=== PATIENT | female | born 1960 | race Caucasian/White ===

== ENCOUNTER 2017-08-15 09:33 | Inpatient (IN) | payer MEDICAID ==
[~2017-08-15] VITALS: Ht 160 cm; Wt 53.2 kg
--- OUTSIDE RECORDS SUMMARY | ~2017-08-15 | XMS | Clinical Summary ---
Demographics + + + | Address | [address] | | | [place] [address] | + + + | Home Phone | | + + + | Preferred Language | Unknown | + + + | Marital Status | Single | + + + | Orthodox Affiliation | Unknown | + + + | Race | White | + + + | Ethnic Group | Other Race | + + + Author + + + | Author | [facility] | + + + | Organization | [facility] | + + + | Address | Unknown | + + + | Phone | Unavailable | + + + Care Team Providers + +------+ + | Care Complex Care Nurse Name | Role | Phone | + +------+ + | Buzz Fisher MD | PP | | + +------+ + Source Comments ARTURO is fully live on both [facility] and [facility] InPatient.[facility] Allergies Not on File Current Medications Not on file Active Problems Not on file Social History + +-------+ +--------+------+ | Tobacco Use | Types | Packs/Day | Years | Date | | | | | Used | | + +-------+ +--------+------+ | Never Assessed | | | | | + +-------+ +--------+------+ + + + | Sex Assigned at | Date Recorded | | | | + + + | Not on file | | + + + Plan of Treatment + + + + + | Health Maintenance | Due Date | Last Done | Comments | + + + + + | INFLUENZA VACCINE | | | | | (FLU SHOT) | 8 | | | + + + + + Results Not on filefrom Last 3 Months"
--- OUTSIDE RECORDS SUMMARY | ~2017-08-15 | XMS | Clinical Summary ---
Demographics + + + | Address | [address] | | | [place] [address] | + + + | Home Phone | | + + + | Preferred Language | Unknown | + + + | Marital Status | Single | + + + | Mormon Affiliation | Unknown | + + + [...] Team Providers + +------+ + | Care Product Manager Name | Role | Phone | + +------+ + | Buzz Fisher MD | PP | | + +------+ + Source Comments ART[facility]O is fully live on both [facility] Amb[facility] and [facility] InPatient.[facility] Allergies Not on File Current Medications Not [...]
--- OUTSIDE RECORDS SUMMARY | ~2017-08-15 | XMS | Clinical Summary ---
Demographics + + + | Address | [address] | | | [place] [address] | + + + | Home Phone | | + + + | Preferred Language | Unknown | + + + | Marital Status | Single | + + + | Hoahaoism Affiliation | Unknown | + + + [...] Team Providers + +------+ + | Care Staff Training And Development Manager Name | Role | Phone | + +------+ + | Buzz Fisher MD | PP | | + +------+ + Source Comments ART[facility]O is fully live on both [facility] Amb[facility] and [facility] InPatient.[facility] Allergies Not on File Current Medications [...]
--- NOTE | 2017-08-15 14:25 | NUR ---
PT RECEIVED FROM ED. ADMISSION INTAKE COMPLETE. PT COMPLAINT FO PAIN TO LEFT ABD, RATING PAIN 6/10 AT REST, REQUESTED PAIN MEDICATION, GIVEN 0.5 MG IV DILAUDID. PT ON ROOM AIR, LUNG SOUNDS CLEAR. BOWEL TONES ACTIVE, NPO. IV INFUSING LR AT 125 ML/HR, FLAGYL INFUSING. PT SKING GROSSLY INTACT. PULSES PALPABLE, CMS INTACT, WITHOUT EDEMA. DISCUSSED PLAN OF CARE. PT DENIES OTHER NEEDS AT THIS TIME.
--- NOTE | 2017-08-15 15:29 | NUR ---
patient in bed, appears to be sleeping. call light in reach
--- NOTE | 2017-08-15 17:57 | NUR ---
PATIENT IN BED, VITALS AND I/OS DONE. MAXINE LO IN FOR MEDS PATIENT REQUESTS PAIN MEDS, NIRSE NOTIFIED. CALL LIGHT IN REACH
--- NOTE | 2017-08-15 18:12 | NUR ---
PT RECEIVED FROM ED THIS AFTERNOON. PT ON ROOM AIR, LUNG SOUNDS CLEAR. RATING PAIN 6/10, GIVEN IV DILAUDID X2. IV FLUIDS INFUSING D5LR AT 100 ML/HR, IV ABX. PT UP WITH SBA. CLEAR LIQUID DIET. VOIDING CONCENTRATED URINE.
--- NOTE | 2017-08-15 19:15 | NUR ---
RECEIVED REPORT FROM RN. PATIENT IS RESTING IN BED, BREATHING IS EVEN AND UNLABORED. DENIES NEEDS AT THIS TIME. CALL LIGHT WITHIN REACH.
--- NOTE | 2017-08-15 20:02 | NUR ---
PATIENT RESTING IN BED, BREATHING IS EVEN AND UNLABORED. DENIES NEEDS. ASSESSMENT DONE, MEDICATION GIVEN. CALL LIGHT WITHIN REACH.
--- NOTE | 2017-08-15 20:21 | NUR ---
ASSISTED PATIENT TO BATHROOM WITH SBA. NOW RESTING IN BED, BREATHING IS EVEN AND UNLABORED. REPORTS 5/10 PAIN IN LLQ OF ABD, PRN DILAUDID GIVEN PER EMAR. DENIES FURTHER NEEDS. CALL LIGHT WITHIN REACH.
--- NOTE | 2017-08-15 21:00 | EKG ---
[facility] [address] [place] [address] Signed Normal sinus rhythm Septal infarct , age undetermined Abnormal ECG No previous ECGs available Confirmed by TRINA NUNEZ MD ([id number]) on 08/15/2017 9:00:04 PM Electronically Signed By: TRINA NUNEZ MD 08/15/17 2100 PATIENT NAME: GITA CHRISTY Electrocardiogram DATE OF : 58 PHYSICIAN: TRINA NUNEZ MD REPORT #: [id number] REPORT IS CONFIDENTIAL AND NOT TO BE RELEASED WITHOUT AUTHORIZATION
--- NOTE | 2017-08-15 21:43 | NUR ---
PATIENT RESTING COMFORTABLY IN BED, BREATHING IS EVEN AND UNLABORED. FLACC SCORE OF 0. CALL LIGHT WITHIN REACH.
--- NOTE | 2017-08-16 01:05 | NUR ---
PATIENT REPORTS 6/10 PAIN IN LLQ OF ABD, PRN DILAUDID GIVEN PER EMAR. PATIENT DENIES FURTHER NEEDS. CALL LIGHT WITHIN REACH.
--- NOTE | 2017-08-16 04:13 | NUR ---
PATIENT RESTING IN BED, BREATHING IS EVEN AND UNLABORED. REPORTS 5/10 PAIN IN LLQ OF ABD, PRN DILAUDID GIVEN PER EMAR. DENIES FURTHER NEEDS. CALL LIGHT WITHIN REACH.
--- NOTE | 2017-08-16 06:09 | NUR ---
PATIENT'S NIGHT WAS UNEVENTFUL. SHE HAS BEEN RESTING THROUGHOUT SHIFT. VSS, URINE OUTPUT QS, PAIN WELL CONTROLLED WITH PRN DILAUDID. NO ACUTE CHANGES FROM BEGINNING OF SHIFT.
--- NOTE | 2017-08-16 06:45 | NUR ---
PATIENT RESTING COMFORTABLY IN BED, BREATHING IS EVEN AND UNLABORED. REPORTS 4/10 PAIN IN ABD, DENIES NEED FOR PAIN MEDICATION. DENIES NEEDS. CALL LIGHT WITHIN REACH.
--- NOTE | 2017-08-16 07:20 | NUR ---
BEDSIDE HANDOFF REPORT RECEIVED FROM PROJECT MANAGEMENT CONSULTANT RN. PT RESTING IN BED. PT DENIES NEEDS AT THIS TIME.
--- NOTE | 2017-08-16 08:19 | CONS ---
[facility] [address] [place], [place] [address] Signed DATE OF CONSULTATION: 08/15/2017 CHIEF COMPLAINT: Left upper quadrant abdominal pain. HISTORY OF PRESENT ILLNESS: Gita is a 56-year-old female, who has been smoking a half pack of cigarettes a day since age 24. She is here in [place], living with her daughter, as her daughter finishes her last year of community college. Yesterday, she started developing left upper quadrant and left mid quadrant abdominal pain. It persisted, so she came to emergency room for evaluation. Previously, Dr. Bradshaw in [place] did open sigmoid resection for her because of diverticulitis. Consequently, she recognized this as a colitis type feeling. Here in the hospital, she is tender in the left mid quadrant with an elevated white count and a CT scan that shows the thickened distal transverse colon and splenic flexure over the length of about 14 cm. Consequently, I was asked to admit her as a general surgeon on-call. In the meantime, she has received IV fluids and Cipro and Flagyl. PAST MEDICAL HISTORY: Diverticulosis. PAST SURGICAL HISTORY: Open sigmoid resection with Dr. Bradshaw in [place], [place]. Also, a right paramedian open appendectomy as an 7-year-old child. SOCIAL HISTORY: She has been smoking half a pack of cigarettes a day since age 24. She drinks occasionally. She works at her [employer] 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 Her daughter's phone number #[phone]. She has no primary care provider and has no preferred pharmacy and she is single and has no other children. FAMILY HISTORY: Mom alcohol. She is not sure of her biologic father. REVIEW OF SYSTEMS: She had 10 systems reviewed and really had no other issues. ALLERGIES: None. MEDICATIONS: None. Electronically Signed By: MEGAN TOBAR MD 08/16/17 0819 PATIENT NAME: GITA CHRISTY CONSULTATION DATE OF : 58 REPORT #: [id number] PHYSICIAN: MEGAN TOBAR MD PCP: NO PRIMARY CARE PHYSICIAN REPORT IS CONFIDENTIAL AND NOT TO BE RELEASED WITHOUT AUTHORIZATION [facility] [address] [place], [place] [address] Signed PHYSICAL EXAMINATION: VITAL SIGNS: Her blood pressure is 142/66, heart rate 74, respiratory rate 18, temperature is 98.3. She is 98% on room air. She is 5 feet 3 inches, at 53 kg exam. GENERAL: Gita is a 56-year-old female, who clearly has been a long-time smoker. She is in no acute distress. She does not appear systemically ill or toxic. LUNGS: Clear to auscultation bilaterally. HEART: Regular rate and rhythm. ABDOMEN: Soft, flat, and mildly tender in the left mid quadrant and a little in the left upper quadrant. LABORATORY DATA: Her white blood count is 15.4, neutrophils 84, hemoglobin 14, BUN 16, creatinine 0.9. Urinalysis negative. Liver function test negative. Albumin 3.9, lipase negative. RADIOGRAPHIC STUDIES: CT scan abdomen and pelvis is reviewed along with the report and she clearly has a thickened distal transverse colon and splenic flexure over about 14 cm. I could also see the sigmoid staple line down by her bladder. ASSESSMENT AND PLAN: Gita is a 56-year-old female, who presents with most likely ischemic colitis of her splenic flexure. She has been admitted with IV fluids and antibiotics. We will continue that in a conservative manner. We will, however, have some sips of clears and some pain medication. Hopefully, this to clear out or she should strongly consider having a colonoscopy before she leaves or at least in the very near future and then she should also consider establishing with the primary care provider, although she told me after this school year, she and her daughter planned to go back to [place]. I reviewed all this with Gita. She has expressed understanding and agrees about plan. Megan Tobar MD [facility] /[id number] cc: Megan Tobar MD Electronically Signed By: MEGAN TOBAR MD 08/16/17 0819 PATIENT NAME: GITA CHRISTY CONSULTATION DATE OF : 58 REPORT #: [id number] PHYSICIAN: MEGAN TOBAR MD PCP: NO PRIMARY CARE PHYSICIAN REPORT IS CONFIDENTIAL AND NOT TO BE RELEASED WITHOUT AUTHORIZATION [address] [address] Signed Copies: MEGAN TOBAR MD ~ Electronically Signed By: MEGAN TOBAR MD 08/16/17 0819 PATIENT NAME: WESTLEYGITA DAYANA CONSULTATION DATE OF : 58 REPORT #: [id number] PHYSICIAN: MEGAN TOBAR MD PCP: NO PRIMARY CARE PHYSICIAN REPORT IS CONFIDENTIAL AND NOT TO BE RELEASED WITHOUT AUTHORIZATION
--- NOTE | 2017-08-16 09:00 | NUR ---
PT ON ROOM AIR. PT RATING PAIN 4/10, STATES PAIN HAS NOT IMPROVED MUCH SINCE YESTERDAY. LUNG SOUNDS CLEAR, DENIES SOB. PT BOWEL TONES ACTIVE, DENIES NAUSEA, PT REPORT OF EMESIS THIS AM, UNMEASURED. CMS INATCT, WITHOUT EDEMA, PULSES PALPABLE. IV LFUIDS INFUSING D5LR AT 100 ML/HR, IV FLAGYL INFUSING. PT DENIES OTHER NEEDS AT THIS TIME.
--- NOTE | 2017-08-16 09:53 | NUR ---
WENT IN TO DO PATIENTS VITAL SIGNS, SHE SAID SHE WASNT FEELING WELL BUT THERE WAS NOTHING WE HAVENT ALREADY OFFERED HER THAT WULD HELP HER, SHE SAID SHE THREW UPBUT I DID NOT SEE IT I WILL REPORT TO THE NURSE, SHE DID NOT EAT ANY OF HER CLEAR LIQUID TRAY OR TAKE ANY LIQUIDS IN AND HER PEE WAS VERY DARK
--- NOTE | 2017-08-16 10:48 | NUR ---
ADMINISTERED 1MG DILAUIDID PER PT AND RN EFREN REQUEST. PT TOLERATED WELL. DR DE LEON IN ROOM EXPLAINING HER CONDITION.
--- NOTE | 2017-08-16 12:40 | NUR ---
PT RESTING IN BED. NO ACUTE CHANGES. PT ENCOURAGED TO ATTEMPT TO DRINK WATER TOLERATED. IV FLUIDS CONTINUE TO INFUSE AT 100 ML/HR. PT DENIES OTHER NEEDS AT THIS TIME.
--- NOTE | 2017-08-16 13:38 | NUR ---
PATIENT WAS IN BED SHE SAID THAT SHE HAD EMISIS BUT I DID NOT SEE IT I REPORTED IT TO THE NURSE PATIENT DIDNT EAT ANYTHING FOR LUNCH OR DRINK MUCH BUT 20ML
--- NOTE | 2017-08-16 13:44 | NUR ---
NOTIFIED BY INFANT ROOM TEACHER THAT PT HAD EMESIS. PT DENIES NAUSEA AT THIS TIME. PT STATES SHE VOMITS SUDDENLY WHEN GOING TO BATHROOM. PT DENIES OTHER NEEDS AT THIS TIME.
--- NOTE | 2017-08-16 16:20 | NUR ---
PT RESTING IN BED. PT HAS DENIES NAUSEA, HAS POOR APPETEITE, POOR PO INTAKE. NO ACUTE CHANGES. PT REQUESTING PAIN MEDICATION, RATING PAIN 8/10, GIVEN 1 MG IV DILAUDID. BOWEL TONES ACTIVE, PT REPORT OF SMALL BOWEL MOVEMENT. PT DNIES OTHER NEEDS AT THIS TIME.
--- NOTE | 2017-08-16 17:36 | NUR ---
DID PATIENTS VITAL SIGNS, SHE SAID SHE WAS FEELING A LITTLE BETTER HER PAIN LEVEL IS DOWN, SHE DID NOT NEED ANY OTHER ASSISTANCE AT THE MOMENT
--- NOTE | 2017-08-16 18:08 | NUR ---
PT ON ROOM AIR. PT PAIN MANAGED WITH 1 MG IV DILAUDID. PT HAD 2 EPISODES OF EMESIS THIS AM, POOR INTAKE. IV FLUIDS INFUSING D5LR AT 100 ML/HR, IV FLAGYL AND ROCEPHIN. PT UP INDEPENDENT IN ROOM, WALKED IN [place]. BOWEL TONES ACTIVE, SMALL BM TODAY. VOIDING QS, CONCENTRATED URINE.
--- NOTE | 2017-08-16 20:30 | NUR ---
PATIENT REPORTS NAUSEA AND EMESIS, PRN ZOFRAN GIVEN PER EMAR. PATIENT ALSO REPORTS 6/10 PAIN IN LLQ OF ABD DUE TO EMESIS. WILL ADMINISTER PRN PAIN MEDICATION ONCE ZOFRAN WORKS FOR PATIENT, OFFERED SALTINE CRACKERS AND 7-UP FOR GI COMFORT. WILL CONTINUE TO MONITOR. DENIES FURTHER NEEDS. ASSESSMENT DONE. CALL LIGHT WITHIN REACH.
--- NOTE | 2017-08-16 20:42 | NUR ---
PATIENT TOLERATING CRACKERS AND SODA AFTER ZOFRAN ADMINISTRATION, PRN NORCO GIVEN PER EMAR. PATIENT DENIES FURTHER NEEDS. CALL LIGHT WITHIN REACH.
--- NOTE | 2017-08-16 23:15 | NUR ---
PATIENT REPORTS 7/10 PAIN IN LLQ OF ABD. CALLED DR. DE LEON REGARDING PATIENT'S POOR PAIN CONTROL, RECEIVED NEW IV DILAUDID ORDER PER EMAR.
--- NOTE | 2017-08-17 01:55 | NUR ---
PATIENT REPORTS 7/10 PAIN IN LLQ OF ABD, PRN DILAUDID GIVEN PER EMAR. DENIES FURTHER NEEDS. CALL LIGHT WITHIN REACH.
--- NOTE | 2017-08-17 04:21 | NUR ---
PATIENT RESTING COMFORTABLY, BREATHING IS EVEN AND UNLABORED. FLACC SCORE OF 0. CALL LIGHT WITHIN REACH.
--- NOTE | 2017-08-17 04:41 | NUR ---
PATIENT HAS BEEN RESTING OFF AND ON THROUGHOUT SHIFT. VSS, URINE OUTPUT QS. HAD DIFFICULTY WITH PAIN CONTROL AT BEGINNING OF SHIFT, DR. DE LEON WAS UPDATED AND NEW ORDERS WERE RECEIVED, PATIENT'S PAIN IS NOW WELL CONTROLLED. HAD EMESIS X1, GAVE ONE DOSE OF IV ZOFRAN, PATIENT HAD EXCELLENT RELIEF FROM NAUSEA/EMESIS AFTER ADMINISTRATION OF ZOFRAN. BOWEL TONES ARE HYPOACTIVE, TENDER TO TOUCH. CONTINUES TO BE ON CLEAR LIQUID DIET, IV FLUIDS INFUSING. NO ACUTE CHANGES FROM BEGINNING OF SHIFT.
--- NOTE | 2017-08-17 06:05 | NUR ---
PATIENT RESTING IN BED, BREATHING IS EVEN AND UNLABORED. REPORTS 4/10 PAIN IN LLQ OF ABD, DENIES NEED FOR PAIN MEDICATION. REPORTS NAUSEA, PRN ZOFRAN GIVEN. DENIES FURTHER NEEDS. CALL LIGHT WITHIN REACH.
--- NOTE | 2017-08-17 08:09 | NUR ---
PATIENT RESTING IN BED. PATIENT REFUSED MEAL AND STATES THAT SHE FEELS OFF. CALL LIGHT WITHIN REACH. NO OTHER NEEDS AT THIS TIME.
--- NOTE | 2017-08-17 08:27 | NUR ---
PT REPORTED 7/10 PAIN TO LLQ, LUQ ABDOMEN, GAVE DILAUDID 1 MG. PT ALERT, ORIENTED X 4. PERSONAL SUPPLIES AND CALL LIGHT IN REACH. IS CURRENTLY RECIEVING IV FLAGYL.
--- NOTE | 2017-08-17 08:42 | NUR ---
PT DRINKING MIRALAX IN [place] ORDERED. REQUESTED PRN ANTI NAUSEA MEDICATION FOR REPORT OF INCREASED NAUSEA WITH DRINKING. GAVE PHENERGAN 12.5 MG IV PRN.
--- NOTE | 2017-08-17 10:04 | NUR ---
PT IN BED, DRINKING GATORADE WITH MIRILAX. DENIES FURTHER NAUSEA AT THIS TIME. RATES PAIN TO ABDOMEN 5/10, DENIED NEED FOR PAIN MEDICATION AT THIS TIME. PERSONAL SUPPLIES AND CALL LIGHT IN REACH.
--- NOTE | 2017-08-17 10:23 | NUR ---
VITALS AND I AND O
--- NOTE | 2017-08-17 11:20 | NUR ---
NO BARRIERS TO DISCHARGE HOME AT THIS TIME. DOESN'T HAVE A PCP HERE, IS ONLY HERE FOR SCHOOL YEAR HER DAUGHTER GOES TO [facility]. THEY ARE MOVING BACK TO [place] IN SEPTEMBER. SHE IS AWARE OF WALK-IN CLINIC IF SHE NEEDS TO SEE SOMEONE.
--- NOTE | 2017-08-17 12:47 | NUR ---
FIRE HAZARD INSPECTOR IN ROOM.
--- NOTE | 2017-08-17 13:18 | NUR ---
PT RESTING IN BED-ALERT AND ORIENTED. PAIN IS MAKING HER SOMEWHAT UNCOMFORT- ABLE. PLANNING ON SCOPE LATER TONIGHT, BEGINNING PREP, EXTENDED A BLESSING. WILL FOLLOW NEEDED
--- NOTE | 2017-08-17 13:33 | NUR ---
PT C/O 5/10 PAIN TO LEFT ABDOMEN. GAVE DILAUDID 0.5 MG IV PRN. PERSONAL SUPPLIES AND CALL BUTTON IN REACH. PT IN BED, WATCHING TV.
--- NOTE | 2017-08-17 14:31 | NUR ---
PATIENT SITTING UP IN BED. CALL LIGHT WITHIN REACH. REQUESTING PAIN MEDICATION. RN NOTIFIED.
--- NOTE | 2017-08-17 16:18 | NUR ---
PT IN BED, DRINKING GATORADE WITH MIRILAX BULK. HAS FINISHED FIRST BOTTLE, IS NOW WORKING ON DRINKING THE SECOND BOTTLE. REPORTS THAT SHE HAS HAD 2 SMALL LOOSE BMs. REPORTED THAT HER PAIN IS WELL CONTROLLED AT THIS TIME. DENIED NEEDS. PERSONAL SUPPLIES AND CALL LIGHT IN REACH.
--- NOTE | 2017-08-17 16:26 | NUR ---
PT C/O NAUSEA THIS AM, RECIEVED PHENERGAN 12.5 MG IV PRN. PT RECIEVED PRN DILAUDID 1 MG IV X 2 DOSES THUS FAR THIS SHIFT FOR C/O LUQ, LLQ ABDOMINAL PAIN. RECIEVED MIRILAX BULK IN GATORATED, 2 BOTTLES, AND HAS DRANK 1 BOTTLE THUS FAR. PT HAS HAD 3 BMs THUS FAR THIS SHIFT. ENCOURAGED PT TO DRINK THE REST OF HER BOWEL PREP FOR COLONOSCOPY TOMORROW. PT ON CLEAR LIQUIDS, APETITE POOR, IS TO BE NPO AT MIDNIGHT. PT IS ALERT, ORIENTED X 4. LUNG CTA, BOWEL TONES ACTIVE X 4 QUADRANTS, URINE OUTPUT QUANTITY SUFFICIENT. PT UP WITH STANDBY ASSIST, STEADY ON FEET.
--- NOTE | 2017-08-17 17:39 | NUR ---
PT UP TO BATHROOM, HAD LIQUID BM. BACK TO BED. C/O 6/10 PAIN TO LEFT ABDOMINAL PAIN, GAVE DILAUDID 1 MG IV PRN. PT DENIED OTHER NEEDS. CONTINUES TO DRINK MIRILAX IN [place]. PERSONAL SUPPLIES AND CALL BUTTON IN REACH.
--- NOTE | 2017-08-17 19:20 | NUR ---
PATIENT UP IN BED. CALL LIGHT WITHIN REACH. NO OTHER NEEDS AT THIS TIME.
--- NOTE | 2017-08-17 19:20 | NUR ---
REPORT RECIEVED FROM DAY SHIFT NURSE. PATIENT RESTING IN BED WATCHING TV. PATIENT DENIES ANY NEEDS AT THIS TIME. CALL LIGHT WITHIN REACH.
--- NOTE | 2017-08-17 20:00 | NUR ---
PATIENT ASSESSMENT COMPLETED. MEDICATIONS GIVEN PER ORDER. PATIENT HAS CONTINUOUS FLUIDS 100ML/HR. PATIENT RESTING IN BED WATCHING TV. PATIENT DENIES ANY OTHER NEEDS. PATIENT RATES PAIN 4/10, DENIES THE NEED FOR PAIN MEDICATION AT THIS TIME. NO NAUSEA STATED AT THIS TIME. PATIENT REMAINS INDEPENDENT IN THE ROOM.
--- NOTE | 2017-08-17 21:30 | NUR ---
NEW MEDICATION ORDERS PLACED BY MD. MEDICATIONS GIVEN PER ORDER. FRESH WATER GIVEN. PATIENT EDUCATED ABOUT NEW MEDICATIONS. PATIENT VERBILIZES UNDERSTANDING. PATIENT DENIES ANY OTHER NEEDS AT THIS TIME. CALL LIGHT WITHIN REACH. PATIENT REMAINS INDEPENDENT IN ROOM.
--- NOTE | 2017-08-18 00:15 | NUR ---
PATIENT RESTING WITH EYES CLOSED IN BED AND TV ON. PATIENT RR 16. PATIENT BREATHING UNLABORED AND EVEN. CALL LIGHT WITHIN REACH. IV FLUIDS ON CONTINUOUS. PATIENT NPO.
--- NOTE | 2017-08-18 01:30 | NUR ---
PATIENTS MEDICATIONS GIVEN PER ORDER. PATIENT RATES PAIN 5/10 AND DENIES THE NEED FOR PRN PAIN MEDICATION AT THIS TIME. PATIENT UP TO RESTROOM INDEPENDENTLY. PATIENT NPO. ASSESSMENT COMPLETED. PATIENT DENIES ANY OTHER NEEDS AT THIS TIME. CALL LIGHT WITHIN REACH.
--- NOTE | 2017-08-18 01:55 | NUR ---
PATIENT REQUESTED PRN PAIN MEDICATION. PATIENT RATES PAIN 6/10, PRN DILAUDID GIVEN PER ORDER. PATIENT DENIES ANY OTHER NEEDS AT THIS TIME. CALL LIGHT WITHIN REACH.
--- NOTE | 2017-08-18 04:56 | NUR ---
PATIENT RESTED THROUGHOUT SHIFT. PAIN CONTROLLED X1 WITH PRN DILAUDID. I&OS QS. PATIENT HAS CONTINUOUS FLUIDS RUNNING 100ML/HR. PATIENT ON RA. PATIENT NPO. PATIENT INDEPENDENT IN ROOM. MEDICATIONS GIVEN PER ORDER THROUGHOUT SHIFT. NO COMPLAINTS OF NAUSEA.
--- NOTE | 2017-08-18 06:30 | NUR ---
PATIENTS VITALS TAKEN AND RECORDED. I&OS RECORDED. PATIENT RESTING IN BED WATCHING TV. PATIENT RATES PAIN 4/10, PATIENT DENIES THE NEED FOR PRN PAIN MEDICATION. COLONOSCOPY PREP STARTED. PATIENT DENIES ANY NEEDS AT THIS TIME. CALL LIGHT WITHIN REACH. PATIENT INDEPENDENT IN ROOM.
--- NOTE | 2017-08-18 07:36 | NUR ---
RECIEVED REPORT FROM DOMENICO, RN, AND SIOMARA, VETERAN APPEALS REVIEWER. HAD REPORT AT BEDSIDE THAT PT HAD LIQUID BMS DURING NOC SHIFT, BUT PRIOR TO SHIFT CHANGE PT REPORTED HAVING A SOLID BM TO NOC RN. PT HAD A LIQUID BROWN BM AT 0725. CALLED DR. DE LEON, NOTIFIED HIM OF ABOVE NOTED. RECIEVED TORB TO REPEAT THE MIRILAX BULK BOWEL PREP, AND THAT PT WOULD BE ADDED TO THE SCHEDULE TOMORROW FOR COLONOSCOPY.
--- NOTE | 2017-08-18 08:02 | NUR ---
PT IN BED. REPORTED LEFT UPPER AND LOWER ABDOMINAL PAIN, RATED 6/10. GAVE DILAUDID 1 MG IV PRN. PT HAD LIQUID BM, BROWN IN COLOR. PERSONAL SUPPLIES AND CALL BUTTON IN REACH. PT DENIED NEEDS AT THIS TIME. FLAGYL INFUSING.
--- NOTE | 2017-08-18 08:31 | NUR ---
PATIENT RELAXING IN BED. CALL LIGHT WITHIN REACH. NO OTHER NEEDS AT THIS TIME.
--- NOTE | 2017-08-18 10:28 | NUR ---
DR. DE LEON ON FLOOR. ASKED DR. DE LEON FOR DIET ORDER FOR PT. VORB: CLEAR LIQUIDS TODAY, NPO AT MIDNIGHT.
--- NOTE | 2017-08-18 10:30 | NUR ---
PATIENT RESTING IN BED. CALL LIGHT WITHIN REACH. NO OTHER NEEDS AT THIS TIME.
--- NOTE | 2017-08-18 11:00 | NUR ---
RN IN ROOM.
--- NOTE | 2017-08-18 11:07 | NUR ---
PT IN BED. DENIED PAIN. PERSONAL SUPPLIES AND CALL BUTTON IN REACH. PROVIDED FRESH ICE PER PT'S REQUEST.
--- NOTE | 2017-08-18 12:51 | NUR ---
PT EATING CLEAR LIQUID TRAY. DENIES NAUSEA, DENIES PAIN. PT UP TO BATHROOM, HAD LIQUID BM, BROWN IN COLOR. PT DRINKING SECOND BOTTLE OF MIRILAX BULK IN [facility]. PERSONAL SUPPLIES AND CALL LIGHT IN REACH.
--- NOTE | 2017-08-18 14:24 | NUR ---
PT REPORTED 6/10 PAIN TO LEFT ABDOMEN. GAVE DILAUDID 1 MG IV PRN. PT DENIED OTHER NEEDS.
--- NOTE | 2017-08-18 15:28 | NUR ---
PT IN BED, SLEEPING SOUNDLY. NO S/S DISTRESS OR DISCOMFORT NOTED. PERSONAL SUPPLIES AND CALL BUTTON IN REACH.
--- NOTE | 2017-08-18 18:00 | NUR ---
PT IN BED, RESTING WITH EYES CLOSED. NO S/S DISTRESS OR DISCOMFORT. PERSONAL SUPPLIES AND CALL LIGHT IN REACH.
--- NOTE | 2017-08-18 18:02 | NUR ---
PT UP TO BATHROOM, VOIDED 600 CC URINE, AND HAD A LIQUID BM, 300 CC, CLEAR WITH MEDIUM BROWN TINT. PT DENIED NEEDS AT THIS TIME. NOW BACK IN BED.
--- NOTE | 2017-08-18 18:37 | NUR ---
PT ON CLEAR LIQUID DIET, DRANK MIRILAX BULK WITH GATORADE, AND HAS FINISHED BOTH BOTTLES. PT HAS HAD NUMEROUS LIQUID STOOLS THROUGHOUT SHIFT. LAST LIQUID BM WAS ENTIRELY LIQUID, SEMI CLEAR WITH BROWN TINT. URINE OUTPUT QUANTITY SUFFICIENT. PT HAS C/O LEFT ABDOMINAL PAIN, DILAUDID 1 MG IV PRN GIVEN FOR PAIN WITH GOOD EFFECT. NO C/O NAUSEA THIS SHIFT. LUNGS CTA, PT ON RA, HRR, BOWEL TONES HYPERACTIVE. PT UP INDEPENDANTLY IN ROOM, STEADY ON FEET.
--- NOTE | 2017-08-18 19:15 | NUR ---
REPORT RECIEVED FROM DAY SHIFT NURSE. PATIENT RESTING IN BED WATCHING TV. PATIENT DENIES ANY NEEDS AT THIS TIME. CALL LIGHT WITHIN ROOM. PATIENT INDEPENDENT IN ROOM.
--- NOTE | 2017-08-18 20:20 | NUR ---
PATIENT RESTING IN BED WATCHING TV. PATIENT ASSESSMENT COMPLETED. I&Os AND VITAL SIGN DOCUMENTED. PATIENT RATES PAIN 6/10. PRN PAIN MEDICATION GIVEN PER ORDER. PATIENT INDEPENDENT IN ROOM. FRESH WATER GIVEN. PATIENT DENIES ANY OTHER NEEDS AT THE MOMENT. CALL LIGHT WITHIN REACH.
--- NOTE | 2017-08-18 21:45 | NUR ---
PATIENT RESTING WITH EYES CLOSED AND TV ON. PATIENTS FLUIDS RUNNING CONTINUUS. CALL LIGHT WITHIN REACH.
--- NOTE | 2017-08-18 23:42 | NUR ---
PATIENT UP TO RESTROOM. PATIENT VOIDED 500cc URINE AND 400cc CLEAR LIQUID STOOL WITH SMALL AMOUNT OF BROWN SEDAMENT. PATIENT FLUID BAG CHANGED. PATIENT RATES PAIN 3/10. PATIENT BACK IN BED RESTING. PATIENT DENIES ANY OTHER NEEDS. CALL LIGHT WITHIN REACH.
--- NOTE | 2017-08-19 01:30 | NUR ---
PATIENT UP TO RESTROOM. PATIENT INDEPENDENT IN THE ROOM. PATIENT NPO AT MIDNIGHT. PATIENT DENIES ANY NEEDS AT THIS TIME. CALL LIGHT WITHIN REACH. PATIENT RATES PAIN 4/10. PATIENT DENIES THE NEED FOR PAIN MEDICAITON, WILL CONTINUE TO MONITOR.
--- NOTE | 2017-08-19 04:15 | NUR ---
PATIENT RESTING IN BED WITH EYES CLOSED. BREATHING UNLABORED AND RR 16. IV FLUIDS RUNNING CONTINUOUSLY. PATIENT INDEPENDENT IN ROOM. CALL LIGHT WITHIN REACH.
--- NOTE | 2017-08-19 04:54 | NUR ---
PATIENT INDEPENDENT IN ROOM. PATIENT ON RA. IV FLUIDS RUNNING CONTINUOUSLY. PATIENT MEDICATED X1 PRN PAIN MEDICATION. PATIENT RESTED THROUGHTOUT THE NIGHT. NO COMPLAINTS OF NAUSEA. PATIENT ON CLEAR LIQUIDS UNTIL MIDNIGHT, NOW NPO. PATIENT HAD LIQUID STOOL WITH SMALL AMOUNT OF SEDEMENT.
--- NOTE | 2017-08-19 06:11 | NUR ---
PATIENT RESTING IN BED. VITAL SIGNS AND I&Os DOCUMENTED. PATIENT HAD LIQUID STOOL WITH SCANT AMOUNT OF BROWN STOOL. PATIENT RATES PAIN 1/10. PATIENTS IV IS RUNNING CONTINUOUS. PATIENT DENIES ANY NEEDS. CALL LIGHT WITHIN REACH.
--- NOTE | 2017-08-19 06:37 | NUR ---
DAY SURGERY RN HERE TO TAKE PATIENT TO PROCEDURE. HAND OFF GIVEN. ALL QUESTIONS ANSWERED. PATIENT IS NOW OFF THE FLOOR.
--- NOTE | 2017-08-19 08:24 | NUR ---
08/19/17 0824 Regine Pavon 0752 PT ARRIVED IN PACU SLEEPY WITH NO C/O'S. ABD SOFT. 0820 AWAKE TALKING TO STAFF.
[2017-08-19] MEDS ORDERED: NORCO 5-325 TA1 EACH PO (09:11)
[2017-08-19] MEDS ORDERED: NORVASC5 MG PO (09:14)
--- NOTE | 2017-08-19 10:29 | NUR ---
VITALS TAKEN, PATIENT ABLE TO EAT A REGULAR DIET WITHOUT ANY NAUSEA OR VOIMITING. SHE HAS NO C/O PAIN AT THIS TIME.
--- NOTE | 2017-08-19 12:20 | DS ---
[facility] [address] [place], [place] [address] Signed ADMISSION DATE: 08/15/2017 DISCHARGE DATE: 08/19/2017 FINAL DIAGNOSES: 1. Colitis at 58-53 cm representing the distal transverse colon versus splenic flexure. 2. Colonic polyps. 3. Hypertension. PROCEDURE: 1. Colonoscopy. 2. CT scan of abdomen and pelvis. HISTORY OF PRESENT ILLNESS: Gita is a 56-year-old female with a history of smoking half-a-pack of cigarettes a day since age of 24. She presented with a one-day history of left upper quadrant and left mid quadrant abdominal pain. In the emergency room, she had localized peritonitis with an elevated white count. A CT scan of the abdomen and pelvis confirmed the thickened colon over a length of almost 14 cm in the distal transverse colon and the splenic flexure. We could also see the sigmoid staple line at the top of the rectum from her previous sigmoidectomy by Dr. Bradshaw in [place] for diverticular disease. I had been asked to admit Gita as a general surgeon on-call. HOSPITAL COURSE: Gita was admitted as above and placed on antibiotics, IV fluids, and pain control. She rapidly improved and her white count returned to normal. We were going to perform a colonoscopy yesterday, but her bowel prep was inadequate. We kept her in the hospital one additional day for a second bowel prep. Today, we brought her down for her colonoscopy and she did very well with the above findings. She is healing up the area of colitis currently. We also had our Internal Medicine Service see her because her systolic blood pressures were running consistently in the 150s to 160s and she was started on amlodipine 5 mg p.o. daily. We are going to return her to her room after the colonoscopy and she will be going home later today. DISCHARGE PLANS AND MEDICATIONS: Gita will be discharged to home with a prescription for Winger 5/325 mg 1 to 2 tablets p.o. q.4-6 hours p.r.n. pain, dispensed 20 tablets with no refills. We will also give her amlodipine 5 mg p.o. daily, dispensed 30 tablets with two refills. She can continue a regular diet at home. She is welcome to return back to work when she feels up to it. She can perform her activities as tolerated. I will see her in my office in 7 to 14 days to review the colonoscopy results. She will follow up with Dr. Trina Nunez in 2 to 4 weeks for her ongoing medical care, particularly her hypertension and her cardiac Electronically Signed By: MEGAN DE LEON MD 08/19/17 1220 PATIENT NAME: GIAT CHRISTY DISCHARGE SUMMARY DATE OF : 58 REPORT #: [id number] PHYSICIAN: MEGAN DE LEON MD PCP: NO PRIMARY CARE PHYSICIAN REPORT IS CONFIDENTIAL AND NOT TO BE RELEASED WITHOUT AUTHORIZATION [address] [address] Signed helena, which is going to need an outpatient echocardiogram. She has expressed understanding and agrees with the above plan. Megan De Leon MD ALB/MODL /[id number] cc: Trina Nunez MD Copies: TRINA NUNEZ MD ~ Electronically Signed By: MEGAN DE LEON MD 08/19/17 1220 PATIENT NAME: GITA CHRISTY DISCHARGE SUMMARY DATE OF : 58 REPORT #: [id number] PHYSICIAN: MEGAN DE LEON MD PCP: NO PRIMARY CARE PHYSICIAN REPORT IS CONFIDENTIAL AND NOT TO BE RELEASED WITHOUT AUTHORIZATION
--- NOTE | 2017-08-20 07:54 | OR ---
[facility] [address] [place], [place] [address] Signed DATE OF OPERATION: 08/19/2017 SURGEON: Megan De Leon MD PREOPERATIVE DIAGNOSES: 1. Distal transverse colon/splenic flexure colitis. 2. History of sigmoidectomy for diverticular disease. POSTOPERATIVE DIAGNOSES: 1. Side-to-end stapled colorectal anastomosis at 10 cm. 2. A 4 mm polyps x3 in colon at 10 cm. 3. Minimal descending diverticula. 4. Colitis at 58-53 cm. PROCEDURE: Colonoscopy with hot biopsy and cold biopsy. ESTIMATED BLOOD LOSS: None. INDICATIONS: Gita is a 56-year-old lady who works at our local [employer]. She moved here from [place] to be with her daughter while she is attending our [employer]. Her plan is to return back to [place] in about a year. She has had a previous open sigmoid resection with a stapled side-to-end colorectal anastomosis at 10 cm. This is a circular stapler. She also has a history of smoking since the age of 24. She came to the hospital with left upper quadrant and left mid quadrant abdominal pain over the course of about a day. White count was elevated and the CT scan showed colitis in the distal transverse colon/splenic flexure. I have been asked to see her as the general surgeon on-call. We admitted her and put her on Rocephin and Flagyl and pain control. Within a couple of days, she was markedly improved and her white count had returned to normal. We put her through a bowel prep and unfortunately she still had quite a bit of brown liquid particulate stool matter yesterday, so we canceled her colonoscopy yesterday and kept her in the hospital for another day of bowel prep for colonoscopy today. In the meantime, she does not see a primary care provider. However, systolic blood pressures were running as high as 150s to 160s consistently. We had our Internal Medicine Service see her and she was placed on amlodipine 5 mg p.o. daily. I had explained to Gita colonoscopy in detail, she has been through that before. She understands the bowel prep and understands the need for IV conscious sedation. She expressed understanding and wished to proceed. Electronically Signed By: MEGAN DE LEON MD 08/20/17 0754 PATIENT NAME: GITA CHRISTY OPERATIVE REPORT DATE OF : 58 REPORT #: [id number] PHYSICIAN: MEGAN DE LEON MD PCP: NO PRIMARY CARE PHYSICIAN REPORT IS CONFIDENTIAL AND NOT TO BE RELEASED WITHOUT AUTHORIZATION [facility] [address] [place], [place] [address] Signed PROCEDURE NOTE: Gita was taken into our endoscopy suite and placed in the left lateral decubitus position. She was given IV sedation with 6 mg of Versed and 100 mcg of fentanyl. A digital rectal exam was performed and this was unremarkable. The adult colonoscope was then introduced and advanced all the way around into the cecum under direct visualization of the camera without difficulty. She still had some liquid particulate stool matter scattered around the colon. Much of that was irrigated and suctioned out. The scope was then slowly withdrawn. Her colon was very healthy until we reach 58-53 cm showing the area of inflammation and ulceration consistent with what appears to be ischemic colitis. We took multiple biopsies in this area for pathologic review. We also took pictures for photodocumentation. The scope was withdrawn further until we reached the colorectal anastomosis at 10 cm. We could easily see several neena. There was just a couple of diverticula as we came down the colon. The anastomosis was quite healthy and healed. No ulcerations. No granulation tissue. In the distal colon there, we found several small polyps which were removed with the hot biopsy forceps. The rectum itself was unremarkable. Upon retroflexion of the scope, there was no additional pathology noted above the anal canal. After this, the gas was suctioned out and the colonoscope removed. Gita tolerated the procedure quite well. RECOMMENDATIONS: Gita will be returned to her room on diet and she will be discharged home later today. She will follow up in my office in a week or so from discharge. She will need to follow up with Dr. Nunez in 2-4 weeks for ongoing medical care. Megan De Leon MD ALB/MODL /[id number] cc: Trina Nunez MD Copies: TRINA NUNEZ MD Electronically Signed By: MEGAN DE LEON MD 08/20/17 0754 PATIENT NAME: GITA CHRISTY OPERATIVE REPORT DATE OF : 58 REPORT #: [id number] PHYSICIAN: MEGAN DE LEON MD PCP: NO PRIMARY CARE PHYSICIAN REPORT IS CONFIDENTIAL AND NOT TO BE RELEASED WITHOUT AUTHORIZATION [address] [address] Signed ~ Electronically Signed By: MEGAN DE LEON MD 08/20/17 0754 PATIENT NAME: GITA CHRISTY OPERATIVE REPORT DATE OF : 58 REPORT #: [id number] PHYSICIAN: MEGAN DE LEON MD PCP: NO PRIMARY CARE PHYSICIAN REPORT IS CONFIDENTIAL AND NOT TO BE RELEASED WITHOUT AUTHORIZATION
== END 2017-08-19 10:47 | disposition home or self-care (01) | DRG 392 ==
LOC: ED 09:33 → MS 09:35 → ED 09:35 → MS 13:14 → ED 13:14 → MS 17:12
PROVIDERS: ADMIT Colon & Rectal Surgery
PROC: 0DBN8ZX Excision of Sigmoid Colon, Via Natural or Artificial Opening Endoscopic, Diagnostic (ICD-10-PCS; principal; 2017-08-19 06:45)
DX: K52.9 Noninfective gastroenteritis and colitis, unspecified (principal); F17.210 Nicotine dependence, cigarettes, uncomplicated; I10 Essential (primary) hypertension; R01.1 Cardiac murmur, unspecified; K63.5 Polyp of colon; E78.5 Hyperlipidemia, unspecified
CPT/HCPCS: 36415; 74177; 80048; 80053; 80061; 81001; 82150; 83036; 83690; 83735; 84100; 85025; 88305; 93005; 93010; 96374; 96375; 99153; 99285; 99406; G0500; J0696; J0744; J1170; J1885; J2250; J2405; J2550; J3010; J3475; J7120; Q9967